=== PATIENT | male | born 1990 | race Caucasian/White ===

== ENCOUNTER 2023-05-29 23:08 | Emergency (ER) | payer BC ==
[~2023-05-29] VITALS: Ht 180.3 cm; Wt 87.1 kg
[2023-05-30 00:14] VITALS: BP 138/82; PULSE 71; RESP 18; TEMP 98.3; O2SAT 99
[2023-05-30] MEDS ORDERED: DICYCLOMINE HCL LIQUID 20 MG, ALUMINUM HYD/MAG/SIMETHICONE 30 ML, LIDOCAINE VISCOUS 2% ... PO ONE ×3 (01:20)
[2023-05-30] MEDS ORDERED: ALUMINUM HYD/MAG/SIMETHICONE 30 ML UDC ONE (01:22)
[2023-05-30] MEDS ORDERED: DICYCLOMINE HCL LIQUID 10 MG/5 ML UDC ONE (01:22)
[2023-05-30] MEDS ORDERED: OMEP40EC24 PO (01:49)
[2023-05-30 01:52] VITALS: BP 138/82; PULSE 71; RESP 18; TEMP 98.3; O2SAT 99
== END 2023-05-30 01:52 | disposition home or self-care (01) ==
LOC: MED 23:08
DX: R10.13 Epigastric pain (principal); Z79.899 Other long term (current) drug therapy
CPT/HCPCS: 99283